=== PATIENT | female | born 2005 | race Caucasian/White ===

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

== ENCOUNTER 2025-01-08 10:41 | Emergency (ER) | payer SELFPAY ==
--- OUTSIDE RECORDS SUMMARY | 2025-01-08 10:55 | XMS_ITS | Clinical Summary ---
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 08/25/2024 Active escitalopram (LEXAPRO) 10 MG Tablet 20 mg. 07/25/2024 Active methylphenidate (RITALIN) 10 MG Tablet 10 mg. 08/02/2024 Active Social History Tobacco Use Types Packs/Day Years Used Date Smoking Tobacco: Never Passive Smoke Exposure: Never Smokeless Tobacco: Never Tobacco Cessation:Counseling Given: Not Answered Alcohol Use Standard Drinks/Week Comments Never 0 (1 standard drink = 0.6 oz pur e alcohol) Comments No Sex and Gender Information Value Date Recorded Sex Assigned at Not on file Legal Sex Female 11:00 PM CDT Gender Identity Not on file Sexual Orientation Not on file Last Filed Vital Signs Vital Sign Reading Time Taken Comments Blood Pressure 105/63 08/27/2024 2:31 PM CDT Pulse 96 08/27/2024 2:31 PM CDT Temperature 37.8 C (100 F) 08/27/2024 1:00 PM CDT Respiratory Rate 19 08/27/2024 2:31 PM CDT Oxygen Saturation 96% 08/27/2024 2:31 PM CDT Inhaled Oxygen Concentration - - Weight 59 kg (130 lb) 08/27/2024 12:41 PM CDT Height 162.6 cm (5' 4 ) 08/27/2024 12:41 PM CDT Body Mass Index 22.31 08/27/2024 12:41 PM CDT Body Mass Index Percentile 59.63% 08/27/2024 12: 41 PM CDT Growth Chart: CDC (Girls, 2- 20 Years) Plan of Treatment Health Maintenance Due Date Last Done Comments Hepatitis C Virus (HCV) Screening 2005 Meningococcal B Immunization (1 of 2 - Standard) 2021 Influenza Immunization (#1) 2024 12/11/2007, 0 11/25/2006 SARS-COV-2 Immunization (3 - season) 2024 03/27/2022, 03/06/2022 Respiratory Syncytial Virus (RSV) Immunization (Adult) (1 - 1-dose 75+ series) 2080 Hepatitis B Immunization Completed 006, 04/10/2006, 2005 Pneumococcal Immunization Combined Aged Out 07/30/2007, 11/25/2006, 07/29/2006, Additional history exists No longer eligible based on patient's age to complete this topic Measles Mumps Rubella (MMR) Immunization Discontinued 07/08/2011, 07/30/2007 Polio (IPV) Immunization Discontinued 011, 12/11/2007, 07/29/2006, Additional history exists Varicella Immunization Discontinued 07/08/2011, 2006 DTaP/Tdap/Td Immunization Discontinued 2016, 07/08/2011, 12/11/2007, Additional history exists Hepatitis A Immunization Discontinued 017, 07/07/2012, 07/08/2011 TdaP Immunization Completed 07/17/2017 Human Papillomavirus (HPV) Immunization Completed 02/26/2018, 07/17/2017 Meningococcal Immunization (ACWY) Completed 05/09/2022, 07/17/2017 Rotavirus Immunization Aged Out No lo nger eligible based on patient's age to complete this topic Insurance MEDICAID [place] Care Teams Resistance Welding Machine Operator Relationship Specialty Start Date End Date Provider, None [place] PCP - General 08/27/24
[2025-01-08 10:58] VITALS: BP 95/71; PULSE 110; RESP 20; TEMP 36.7; O2SAT 99
[2025-01-08] MEDS: ONDANSETRON HCL ODT 4 MG TABLET PO (11:15)
--- NOTE | 2025-01-08 11:55 | PC.NURSE ---
PT DENIES ACTIVE C/O NAUSEA AND REPORTS FEELING MUCH BETTER. IS DRINKING 2ND CUP OF WATER. PROGRESS REPORTED TO PROVIDER
[2025-01-08 12:00] VITALS: BP 91/53; PULSE 100
[2025-01-08 13:15] VITALS: BP 114/62; PULSE 105; RESP 20
[2025-01-08 20:13] LABS: EDCOVIDSCREEN Negative (Negative); EDINFLUASCREEN Negative (Negative); EDINFLUBSCREEN Negative (Negative); EDSTREPNEGPOS1 Negative (Negative)
== END 2025-01-08 13:15 | disposition home or self-care (01) ==
PROVIDERS: Emergency Provider Nurse Practitioner
DX: R11.2 Nausea with vomiting, unspecified (principal); Z20.822 Contact with and (suspected) exposure to COVID-19
CPT/HCPCS: 87081; 87426; 87804; 87880; 99199; A9270

== ENCOUNTER 2025-04-17 11:15 | Emergency (ER) | payer OTHER, SELFPAY ==
--- OUTSIDE RECORDS SUMMARY | 2025-04-17 11:17 | XMS_ITS | Clinical Summary ---
Author Organization [facility] Address [address] [place] [address] Phone Care Team Providers Care In Home Sales Representative Name Role Phone Provider, None Primary Care [...] 12:41 PM CDT Height 162.6 cm (5' 4) 08/27/2024 12:41 PM CDT Body Mass Index [...] Insurance MEDICAID [place] Care Teams In Home Sales Representative Relationship Specialty Start Date End Date Provider, None [place] PCP - General 08/27/24
[2025-04-17 11:26] VITALS: BP 112/73; PULSE 59; RESP 16; TEMP 36.3; O2SAT 99
[2025-04-17] MEDS: DACRIOSE EYE IRRIGATION 118 ML BOTTLE AFFCTD EYE (12:27)
[2025-04-17] MEDS: FLUORESCEIN SOD 1 MG/STRIP AFFCTD EYE (12:28)
[2025-04-17] MEDS: TETRACAINE HCL 0.5% OPHTH SOLN 4 ML BTL AFFCTD EYE (12:28)
--- NOTE | 2025-04-17 14:54 | ED_ITS ---
HPI - Eye Problem General Chief complaint: Eye Problems Stated complaint: Eye Swelling Time Seen by Provider: 04/17/25 12:30 Source: patient and RN notes reviewed Mode of arrival: ambulatory Limitations: no limitations History of Present Illness HPI Narrative: 19-year-old female presents Express Care complaining of bilateral eyelid swelling for 5 days. Patient denies any apparent injury to her eyes. She reports she was in her father's car shop and that she might have gotten metal or something in her eye while being in the shop. Patient denies any pain in her eyes, blurry vision, vision changes, vision problems, swelling to the lips, tongue, throat, breathing problems, or any other concerns. Patient has been taking Zyrtec without relief. Related Data Home Medications ?Medication ?Instructions ?Recorded ?Confirmed ?Last Taken ?Type bupropion HCl 300 mg 24 hr tablet, mg PO 04/17/25 Unknown History extended release Allergies Allergy/AdvReac Type Severity Reaction Status Date / Time No Known Allergies Allergy Verified 04/17/25 11:33 Review of Systems Review of Systems: CONSTITUTIONAL: Denies fever, chills, or sweats. EYES: Denies visual changes, redness, or discharge. Positive for eyelid swelling. ENT: Denies rhinorrhea, congestion, sore throat, or otalgia. CARDIOVASCULAR: Denies chest pain, palpitations, or edema. RESPIRATORY: Denies cough or dyspnea. GASTROINTESTINAL: Denies abdominal pain, nausea, vomiting, or diarrhea. GENITOURINARY: Denies dysuria or hematuria. SKIN: Denies rash or itching. MUSCULOSKELETAL: Denies back pain, joint pain, or myalgia. NEUROLOGIC: Denies headache, numbness, or weakness. PSYCHIATRIC: Denies anxiety or depression. All other systems reviewed are negative, except as documented in HPI. PMFSH Comments At the time of my signature, I reviewed and agree with the nursing past medical, surgical, social, and family history. There is no relevant family history pertinent to the patient complaint. Exam Narrative: GENERAL: This is a well-nourished, well-developed adult, in no apparent distress . They are non ill-appearing, nontoxic appearing. HEAD: normocephalic, atraumatic. EYES: Sclera clear/white. Conjunctiva normal. Vision is grossly intact. Extraocular movements intact. Pupils PERRLA. Bilateral upper and lower eyelids are edematous without erythema or tenderness. Left eyelids are worsened right eyelids. Bilateral wood lamp exam with fluorescein stain unremarkable with no e vidence of corneal abrasion, vitreous humor, or any other findings EARS: External ears normal, auditory canals clear and without drainage, TMs normal without perforation. Hearing grossly intact. NOSE: External nose normal with no obvious nasal discharge, nasal turbinates without redness, no rhinorrhea. THROAT: Mucous membranes moist, posterior pharynx clear, without erythema or swelling. Uvula midline. NECK: Neck supple, non-tender without lymphadenopathy, masses or thyromegaly. CARDIOVASCULAR: Regular rate and rhythm without murmurs, gallops, or rubs. RESPIRATORY: Clear to auscultation. Breath sounds equal bilaterally. No wheezes, rales, or rhonchi. SKIN: warm, Dry, intact with no suspicious lesions or rash, good texture and turgor. NEURO: awake, alert, and oriented to person, place and time. There were no obvious focal neurologic abnormalities. EXTREMITIES: No joint tenderness, effusion, or edema noted. BACK: Nontender without deformity. Course Course Emergency Course: Portions of this record may have been created with voice recognition software Level of Care: Express Care Visit Vital Signs Vital signs: Vital Signs Temperature 97.4 F L 04/17/25 11:26 Pulse Rate 59 L 04/17/25 11:26 Respiratory Rate 16 04/17/25 11:26 Blood Pressure 112/73 04/17/25 11:26 Pulse Oximetry 99 04/17/25 11:26 Oxygen Delivery Room Air 04/17/25 11:26 Temperature 97.4 F L 04/17/25 11:26 Pulse Rate 59 L 04/17/25 11:26 Respiratory Rate 16 04/17/25 11:26 Blood Pressure 112/73 04/17/25 11:26 Pulse Oximetry 99 04/17/25 11:26 Oxygen Delivery Room Air 04/17/25 11:26 Reviewed MDM - Eye Problem MDM Narrative Medical decision making narrative: Wood's lamp exam unremarkable to both eyes. No Evidence of corneal abrasion or any evidence of a globe rupture. Patient denies any vision problems. There is no swelling to the lips, tongue, throat or neck. Patient only takes bupropion. Discussed with patient to talk to her doctor about her bupropion to see if it is causing her symptoms. Patient does not take any other medications. Likely swelling is related to allergic or idiopathic cause. Will treat with a course of prednisone and antihistamines. Discussed physical exam findings. Advised supportive measures and signs/symptoms to go to the ER. Pt is appropriate for outpt treatment and f/u. Differential Diagnosis Differential diagnosis: Likely corneal abrasion, conjunctivitis and other (Angioedema, eyelid swelling, allergic reaction) Critical Care Time Critical Care Time Critical Care Time: No Discharge Plan Discharge Clinical Impression: Edema of eyelid of both eyes Qualifiers: Eyelid: both upper and lower Qualified Code(s): H02.841 - Edema of right upper eyelid Patient Disposition: Home Condition: Stable Instructions: Eyelid Swelling (ED) Additional Instructions: Your Wood's lamp exam showed no evidence of corneal abrasion or any other findings. It is likely related to an allergic reaction. Please take the prednisone as directed. In the morning with food. Please continue taking your Zyrtec daily for 5 days. You may also take Benadryl as well, Benadryl may make you drowsy is a do not drive or operate machinery while taking Benadryl. Follow-up primary care provider in 3-5 days. Your symptoms worsened, he developed any swelling to the face, lips, throat, any difficulty breathing, fevers, excessive drooling, or any other concerns please go to the ER immediately. Patient Language: Mauritian Prescriptions: New prednisone 20 mg tablet 40 mg PO DAILY 5 Days Qty: 10 0RF No Action bupropion HCl 300 mg tablet extended release 24 hr PO Follow-up/Referrals: PHYSICIAN,DATA MANAGEMENT ASSOCIATE [Primary Care Provider] - Time of Disposition: 13:01
== END 2025-04-17 13:29 | disposition home or self-care (01) ==
DX: H02.844 Edema of left upper eyelid (principal); H02.845 Edema of left lower eyelid; H02.841 Edema of right upper eyelid; H02.842 Edema of right lower eyelid
CPT/HCPCS: 99213; A9270; G0463

== ENCOUNTER 2025-10-13 12:34 | Emergency (ER) | payer OTHER, SELFPAY ==
[2025-10-13 12:38] VITALS: BP 104/62; PULSE 61; RESP 16; TEMP 36.8; O2SAT 100
--- NOTE | 2025-10-13 12:48 | ED_ITS ---
HPI - Dental/Oral General Chief complaint: Dental/Oral Stated complaint: left side of face pain Time Seen by Provider: 10/13/25 12:49 Source: patient, RN notes reviewed and old records reviewed Mode of arrival: ambulatory Limitations: no limitations History of Present Illness HPI Narrative: 19 year old female who presents to [facility] care with complaints of dental pain to the left lower back molars for the past week duration with some pain to the left side of her face with no acute swelling noted.Patient reports that she has some radiation of her pain to her left ear also. Patient reports that she needs to see dentist is very fearful of dental care.She has noted hole in the center of her most posterior molar left side with some pain to the adjacent molar left lower bottom. Patient reports that she has bruce taking Ibuprofen for her discomfort. MD Complaint: tooth pain Location: Tooth # (18,19) Onset (ago): week(s) (1) Severity scale (1-10): 4 Treatment prior to arrival: oral analgesic (ibuprofen) Related Data Home Medications ?Medication ?Instructions ?Recorded ?Confirmed ?Last Taken ?Type bupropion HCl 300 mg 24 hr tablet, mg PO 04/17/25 Unk nown History extended release Allergies Allergy/AdvReac Type Severity Reaction Status Date / Time No Known Allergies Allergy Verified 04/17/25 11:33 Review of Systems Review of Systems: CONSTITUTIONAL: Denies fever, chills, or sweats. ENT: Denies rhinorrhea, congestion, sore throat, or otalgia. Reports dental pain to left lower posterior molars with noted hole in center of most posterior tooth with no acute redness of gums or signs of abscess, pain to left side of face reported which radiates to her left ear. CARDIOVASCULAR: Denies chest pain, palpitations, or edema. RESPIRATORY: Denies cough or dyspnea. SKIN: Denies rash or itching. MUSCULOSKELETAL: Denies myalgia. NEUROLOGIC: Denies headache All systems reviewed & are unremarkable except as noted in HPI and below PMFSH Past Medical History Medical History (Updated 10/14/25 @ 09:54 by Diann Washburn APRN) Anxiety and depression Pneumonia Social History Social History Smoking status: Never smoker Alcohol intake: never Substance use: never Living arrangements: with family Gender identity (if verbalized by the patient): Female Comments At time of signature, agree with nursing past medical, surgical, social and family history. There is no relevant family history pertinent to the presenting complaint Exam Narrative: GENERAL: Well-appearing, well-nourished, and in no acute distress. HEAD: Normocephalic, atraumatic. EYES: PERRLA and EOMI. ENT: Nares clear, no rhinorrhea or epistaxis. Mucous membranes moist. Dental pain to the left lower most posterior molars X2 with hole in the center of most posterior molar with facial pain to left with radiation to left ear, no facial swelling noted, no trismus or any signs of Raman angina. TM;s bilateral with good light reflex no drainage or redness, throat pink with no swelling or exudates NECK: Supple no lymphadenopathy. CHEST: Clear to auscultation. No respiratory distress. SAO2 100% on room air HEART: Regular rate and rhythm. No murmur heard. Normal peripheral pulses. SKIN: Warm, dry, no rash. NEURO: No focal deficits. Alert and oriented x3. Course Course Emergency Course: Patient is aware of diagnosis, understands and agrees to treatment plan. Anticipatory guidance given. Patient agrees to follow-up as directed and is aware of reasons to seek care at the emergency department. Portions of this record may have been created with voice recognition software Level of Care: Express Care Visit Vital Signs Vital signs: Vital Signs Temperature 36.8 C 10/13/25 12:38 Pulse Rate 61 10/13/25 12:38 Respiratory Rate 16 10/13/25 12:38 Blood Pressure 104/62 10/13/25 12:38 Pulse Oximetry 100 10/13/25 12:38 Oxygen Delivery Room Air 10/13/25 12:38 Temperature 36.8 C 10/13/25 12:38 Pulse Rate 61 10/13/25 12:38 Respiratory Rate 16 10/13/25 12:38 Blood Pressure 104/62 10/13/25 12:38 Pulse Oximetry 100 10/13/25 12:38 Oxygen Delivery Room Air 10/13/25 12:38 Reviewed MDM - Dental/Oral MDM Narrative Medical decision making narrative: Patients pain and complaint coupled with physical findings are consistent with dentalgia. There are no focal signs of space occupying lesions that are compromising to the airway; no dysphagia, odynophagia, dysphonia, or dyspnea. No uvular deviation or soft palate edema. Patient is non-toxic appearing. The floor of the mouth is soft with no signs of Raman's Angina; no induration below mandible, no neck pain.? Patient is without trismus or drooling and able to swallow secretions.? Patient is felt appropriate for discharge home with dental follow up. Differential Diagnosis Differential diagnosis: Likely dental caries, toothache, fracture of tooth and other (dentalgia) Medical Records Attestation: I reviewed the patient's medical records. Critical Care Time Critical Care Time Critical Care Time: No Discharge Plan Discharge Clinical Impression: Toothache, Dental caries Patient Disposition: Home Condition: Stable Instructions: Antibiotic Form, Toothache (ED) Additional Instructions: Avoid temperature extremes May apply heat or ice to the face Gentle brushing and flossing Antibiotic as directed Tylenol for lesser pain can take one Arthritis Tylenol in between Ibuprofen doses Use ibuprofen regularly 600 mg up to 4 times daily with food no more than 2400 mg daily Follow-up with the dentist as soon as possible--see the list provided If your symptoms persist, change or worsen significantly before you can contact your personal physician then please, without delay, go to the emergency department for further evaluation. Follow-up with PCP in 7-10 days or sooner if needed Patient Language: Tajik Prescriptions: New amoxicillin 875 mg tablet 875 mg PO Q12H Qty: 20 0RF Rx Instructions: complete all doses of oral antibiotic chlorhexidine gluconate [Peridex] 0.12 % mouthwash 15 ml mucous membrane BID Qty: 473 0RF No Action bupropion HCl 300 mg tablet extended release 24 hr PO prednisone 20 mg tablet 40 mg PO DAILY 5 Days Qty: 10 0RF Follow-up/Referrals: PHYSICIAN,SUPERVISOR LATHING [Primary Care Provider, Internal Medicine] Stand Alone Forms: Work/School Release IP Time of Disposition: 12:58 Quality Kaylin Coma Scale Eyes: Open Verbal: Oriented and Alert Motor: Follows Commands Kaylin Coma Total Score: 15
--- OUTSIDE RECORDS SUMMARY | 2025-10-13 14:52 | XMS_ITS | Clinical Summary ---
Author Organization [facility] Address [address] [place] [address] Care Team Providers Care Preforming Machine Operator Name Role Phone Sole Law MD Primary Care Provider [phone] Allergies No known active allergies Medications No known medications Active Problems No known active problems Social History Tobacco Use Types Packs/Day Years Used Date Smoking Tobacco: Never Smokeless Tobacco: Never Personal Safety Answer Date Recorded Have you ever been in or are you currently in a harmful physical or emotional relationship or is someone making you feel afraid or unsafe? 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 Gender Identity Not on file Sexual Orientation Not on file Growth Chart Information Age Height Weight [id number] th Percentile BMI Percentile Head Circum Head Circum Percentile Date 18 years 162.6 cm (5' 4) 63.5 kg (140 lb) 74.71%* 2023 16 years 162.6 cm (5' 4) 69.9 kg (154 lb) 90.36%* 2021 12 years 58.5 kg (128 lb 15.5 oz) 2017 * [facility] (Girls, 2-20 Years) Last Filed Vital Signs Vital Sign Reading Time Taken Comments Blood Pressure 118/56 08/25/2024 2:21 AM CDT Pulse 115 08/25/2024 2:21 AM CDT Temperature 36.7 C (98.1 F) 08/25/2024 2:21 AM CDT Respiratory Rate 18 08/25/2024 2:21 AM CDT Oxygen Saturation 96% 08/25/2024 2:21 AM CDT Inhaled Oxygen Concentration - - Weight 63.5 kg (140 lb) 08/25/2024 2:21 AM CDT Height 162.6 cm (5' 4) 08/25/2024 2:21 AM CDT Body Mass Index 24.03 08/25/2024 2:21 AM CDT Body Mass Index Percentile 74.71% 08/25/2024 2:2 1 AM CDT Growth Chart: [facility] (Girls, 2- 20 Years) Plan of Treatment Health Maintenance Due Date Last Done Comments Depression Screening 2005 Hepatitis C Screening 2005 Meningococcal B Vaccine (1 o f 2 - Standard) 2021 Regular Well Visit/Exam 18-64 2023 Covid-19 Vaccine (3 2024-2 6 season) 2025 03/27/2022, 03/06/2022 Influenza Vaccine (#1) 2025 12/11/2007, 2006 DTaP/Tdap/Td Vaccine (7 - Td or Tdap) 07/17/2027 07/17/2017, 07/08/2011, 12/11/2007, Additional history exists Hepatitis B Screening Completed 07/29/2006 , 04/10/2006, 2005 Pneumococcal vaccine <65 Completed 007, 11/25/2006, 07/29/2006, Additional history exists Varicella Vaccines Completed 07/08/2011, 07/30/2007 HPV Vaccines Completed 02/26/2018, 07/17/2017 Meningococcal Vaccine Completed 05/09/2022, 017 Insurance [facility] [employer] Care Teams Preforming Machine Operator Relationship Specialty Start Date End Date Sole Law MD PCP - General 04/15/18
--- OUTSIDE RECORDS SUMMARY | 2025-10-13 14:57 | XMS_ITS | Clinical Summary ---
Author Organization [facility] Address [address] [place] [address] Phone Care Team Providers Care Inspector Plating Name Role Phone Provider, None Primary Care [...] 2 - Standard) 2021 Influenza Immunization (#1) 2025 12/11/2007, 0 11/25/2006 SARS-COV-2 Immunization (3 - season) 2025 03/27/2022, 03/06/2022 Respiratory Syncytial Virus (RSV) Immunization (Adult) (1 - 1-dose 75+ series) 2080 Hepatitis B Immunization Completed 006, 04/10/2006, 2005 Pneumococcal Immunization Combined Aged Out 07/30/2007, 11/25/2006, 07/29/2006, Additional history exists No longer eligible based on patient's age to complete this topic Measles Mumps Rubella (MMR) Immunization Discontinued 07/08/2011, 07/30/2007 Polio (IPV) Immunization Discontinued 011, 12/11/2007, 07/29/2006, Additional history exists Varicella Immunization Completed 07/08/2011, 2006 DTaP/Tdap/Td Immunization Discontinued 2016, 07/08/2011, 12/11/2007, Additional history exists Hepatitis A Immunization Discontinued 017, 07/07/2012, 07/08/2011 TdaP Immunization Completed 07/17/2017 Human Papillomavirus (HPV) Immunization Completed 02/26/2018, 07/17/2017 Meningococcal Immunization (ACWY) Completed 05/09/2022, 07/17/2017 Rotavirus Immunization Aged Out No lo nger eligible based on patient's age to complete this topic Insurance MEDICAID BL[place] Care Teams Inspector Plating Relationship Specialty Start Date End Date Provider, None [place] PCP - General 08/27/24
== END 2025-10-13 13:10 | disposition home or self-care (01) ==
PROVIDERS: Emergency Provider Registered Nurse
DX: K02.9 Dental caries, unspecified (principal); F41.9 Anxiety disorder, unspecified; F32.A Depression, unspecified
CPT/HCPCS: 99213; G0463